=== PATIENT | female | born 1960 | race Caucasian/White ===

== ENCOUNTER 2023-03-30 22:57 | Emergency (ER) | payer SELFPAY ==
[~2023-03-30] VITALS: Ht 167.6 cm; Wt 87.0 kg
[2023-03-30 23:00] VITALS: O2SAT 98
[2023-03-30] MEDS ORDERED: SODIUM CHLORIDE 0.9% 500 ML IV ONE (23:15)
[2023-03-31 00:33] LABS: BASOPHILS % 0.3 % (0.0-2.0); HEMATOCRIT. 37.2 % (36.0-48.0); HEMOGLOBIN. 12.6 g/dL (12.0-16.0); LYMPHOCYTES % 18.1 % (20.0-50.0); MEAN CORPUSCULAR HEMOGLOBIN 31.1 pg (28.0-32.0); MEAN CORPUSCULAR HGB CONC 33.8 g/dL (31.0-37.0); MEAN CORPUSCULAR VOLUME 92.1 fL (81.0-99.0); MEAN PLATELET VOLUME 7.2 fl (7.4-10.4); MONOCYTES % 5.7 % (2.0-8.0); NEUTROPHILS % 73.9 % (40.0-76.0); PLATELET 284 x1000/uL (130-400); RED BLOOD CELL COUNT 4.04 mill/uL (4.2-5.4); RED CELL DISTRIBUTION WIDTH 12.8 % (11.6-14.6); WHITE BLOOD COUNT 9.2 x1000/uL (4.5-11.0)
[2023-03-31 00:41] LABS: CHLORIDE 107 mEq/L (98-107); INDEX HEMOLYSI 3 (1-3); INDEX ICTERIC 1 (1-4); INDEX LIPEMIC 1 (1-3); POTASSIUM 3.5 mEq/L (3.5-5.1); SODIUM 137 mEq/L (136-145)
[2023-03-31 00:58] LABS: ALANINE AMINOTRANSFERASE 30 IU/L (13-61); ALBUMIN 3.3 g/dL (3.4-5.0); ASPARTATE AMINOTRANSFERASE 21 IU/L (15-37); BILIRUBIN TOTAL 0.2 mg/dL (0.1-1.0); CALCIUM 8.3 mg/dL (8.5-10.1); CARBON DIOXIDE 24 mEq/L (21-32); ETHANOL BLOOD < 10 mg/dL (-10); GLUCOSE 113 mg/dL (70-105); NT PRO B-TYPE NATRIURETIC PEP 38 pg/mL (5-125); PROTEIN TOTAL 6.7 g/dL (6.0-8.3); UREA NITROGEN BLOOD 17 mg/dL (7-21)
[2023-03-31 01:06] LABS: TROPONIN I HIGH SENSITIVITY < 4 ng/L (<54)
[2023-03-31 01:30] VITALS: BP 117/72; PULSE 67; RESP 13; TEMP 92.6
[2023-03-31 02:35] LABS: PROTHROMBIN TIME 10.8 sec (9.6-11.0)
[2023-03-31 03:07] LABS: TROPONIN I HIGH SENSITIVITY < 4 ng/L (<54)
== END 2023-03-31 02:05 | disposition home or self-care (01) ==
LOC: ER 22:57
DX: R42 Dizziness and giddiness (principal); R00.1 Bradycardia, unspecified; J45.909 Unspecified asthma, uncomplicated; E78.00 Pure hypercholesterolemia, unspecified; I10 Essential (primary) hypertension; I25.2 Old myocardial infarction
CPT/HCPCS: 36415 ×2; 71045; 93005; 96360; 96361; 99285; 80053; 80320; 83880; 85025; 85610; 84484; J7040; G0480